=== PATIENT | male | born 1980 | race American Indian/Alaskan Native ===

== ENCOUNTER 2017-06-20 10:24 | Emergency (ER) | payer MEDICARE, MEDICAID ==
--- NOTE | 2017-06-20 14:51 | Emergency Department Report ---
ED Dizziness HPI - General Chief Complaint: Syncope Stated Complaint: SYNCOPIAL EPISODE Time Seen by Provider: 06/20/17 13:49 Source: patient, EMS Mode of arrival: Stretcher Limitations: Altered Mental Status - History of Present Illness Initial Comments: This morning the patient came out of the bathroom and felt lethargic and lightheaded and felt like he was in a pass out. He said he just finished having a bowel movement and he was constipated and had to strain. Patient denies any syncopal episode. At this time he has no other complaints. It lasted only a few minutes MD Complaint: dizziness, lightheadedness Onset/Timin (hrs ago) -: Gradual Time: 09:00 Timing: gradual onset Description: lightheadedness History of Same: No History of Trauma: No Severity: moderate Improves With: nothing Worsens With: nothing - Related Data Allergies Allergy/AdvReac Type Severity Reaction Status Date / Time No Known Allergies Allergy Unverified 06/20/17 10:37 ED Review of Systems ROS: Stated complaint: SYNCOPIAL EPISODE Other details as noted in HPI Comment: All other systems reviewed and negative ED Past Medical Hx - Past Medical History Previous Medical History?: Yes Hx Asthma: Yes Additional medical history: developmental delay - Surgical History Past Surgical History?: No Additional Surgical History: MELODY - Social History Smoking Status: Never Smoker Substance Use Type: None ED Physical Exam - General Limitations: Altered Mental Status General appearance: alert, in no apparent distress - Head Head exam: Present: atraumatic, normocephalic - Eye Eye exam: Present: normal appearance - ENT ENT exam: Present: mucous membranes moist - Neck Neck exam: Present: normal inspection - Respiratory Respiratory exam: Present: normal lung sounds bilaterally. Absent: respiratory distress - Cardiovascular Cardiovascular Exam: Present: regular rate, normal rhythm. Absent: systolic murmur, diastolic murmur, rubs, gallop - GI/Abdominal GI/Abdominal exam: Present: soft, normal bowel sounds. Absent: distended, tenderness, guarding - Rectal Rectal exam: Present: deferred - Extremities Exam Extremities exam: Present: normal inspection - Back Exam Back exam: Present: normal inspection - Neurological Exam Neurological exam: Present: alert, oriented X3 - Psychiatric Psychiatric exam: Present: normal affect, normal mood - Skin Skin exam: Present: warm, dry, intact, normal color. Absent: rash ED Course Vital Signs 06/20/17 06/20/17 10:49 15:16 Temperature 98 F 100.5 F H Pulse Rate 83 84 Respiratory 16 20 Rate Blood Pressure 100/76 132/74 [Left] O2 Sat by Pulse 96 100 Oximetry ED Medical Decision Making - Lab Data Result diagrams: 06/20/17 14:17 06/20/17 14:17 - EKG Data -: EKG Interpreted by Md EKG shows normal: sinus rhythm, axis (normal), intervals (normal), QRS complexes (normal), ST-T waves (normal) Rate: normal - Radiology Data Radiology results: report reviewed Critical care attestation.: If time is entered above; I have spent that time in minutes in the direct care of this critically ill patient, excluding procedure time. ED Disposition Clinical Impression: Vasovagal near syncope Disposition: DC- TO HOME OR SELFCARE Is pt being admited?: No Does the pt Need Aspirin: No Condition: Stable Instructions: Syncope (ED) Additional Instructions: Increase fluid intake and avoid constipation or straining of the abdomen Referrals: PRIMARY CAREMD [Primary Care Provider] - 3-5 Days Time of Disposition: 15:54 Print Language: BULGARIAN
[2017-06-20 15:01] LABS: Basophils % (Auto) 0.1 % (0.0-1.8); Eosinophils % (Auto) 0.2 % (0.0-4.3); Hematocrit 47.8 % (35.5-45.6); Hemoglobin 15.4 gm/dl (11.8-15.2); Lymphocytes # (Auto) 0.4 K/mm3 (1.2-5.4); Mean Corpuscular HGB Conc 32 % (32-34); Mean Corpuscular Hemoglobin 29 pg (28-32); Mean Corpuscular Volume 89 fl (84-94); Monocytes # (Auto) 0.4 K/mm3 (0.0-0.8); Monocytes % (Auto) 5.2 % (0.0-7.3); Red Blood Count 5.34 M/mm3 (3.65-5.03); Red Cell Distribution Width 14.6 % (13.2-15.2)
[2017-06-20 15:12] LABS: Creatine Kinase MB 1.7 ng/mL (0.0-4.0)
[2017-06-20 15:14] LABS: Alanine Aminotransferase 20 units/L (7-56); Albumin 4.3 g/dL (3.9-5); BUN/Creatinine Ratio 14; Blood Urea Nitrogen 13 mg/dL (9-20); Hemolysis Index 16
[2017-06-20 15:16] LABS: Platelet Count 190 K/mm3 (140-440)
[2017-06-20 15:18] VITALS: BP 132/74
== END 2017-06-20 16:28 | disposition home or self-care (01) ==
LOC: ED 10:24
DX: R55 Syncope and collapse (principal); J45.909 Unspecified asthma, uncomplicated
CPT/HCPCS: 36415; 80053; 82550; 82553; 84484; 85025; 93005; 93010; 99284